=== PATIENT | female | born 1955 | race Caucasian/White ===

== ENCOUNTER → 2024-08-28 15:13 | Outpatient (REF) | payer OTHER, SELFPAY | LOC: WDC 15:13 | PROVIDERS: ATTENDING PHYSICIAN Family Medicine | DX: Z12.31 Encounter for screening mammogram for malignant neoplasm of breast (principal) | CPT/HCPCS: 77063; 77067 ==

== ENCOUNTER → 2025-08-19 10:34 | Outpatient (REF) | payer OTHER, SELFPAY | LOC: RAD 10:34 | PROVIDERS: ATTENDING PHYSICIAN Family Medicine | DX: Z78.0 Asymptomatic menopausal state (principal); Z91.89 Other specified personal risk factors, not elsewhere classified | CPT/HCPCS: 77080 ==

== ENCOUNTER → 2025-09-22 16:51 | Outpatient (REF) | payer OTHER, SELFPAY | LOC: WDC 16:51 | PROVIDERS: ATTENDING PHYSICIAN Family Medicine | DX: Z12.31 Encounter for screening mammogram for malignant neoplasm of breast (principal) | CPT/HCPCS: 77063; 77067 ==